=== PATIENT | male | born 1995 | race African-American/Black ===

== ENCOUNTER 2023-12-31 13:19 | Emergency (ER) | payer MEDICAID ==
[~2023-12-31] VITALS: Ht 170.2 cm; Wt 86.0 kg
[2023-12-31 13:28] VITALS: O2SAT 98
[2023-12-31 13:46] VITALS: BP 126/80; PULSE 84; RESP 18; TEMP 98.2; O2SAT 98
== END 2023-12-31 16:35 | disposition home or self-care (01) ==
LOC: ER 13:19
DX: Z77.120 Contact with and (suspected) exposure to mold (toxic) (principal)
CPT/HCPCS: 71045; 99283